=== PATIENT | male | born 1960 | race African-American/Black ===

== ENCOUNTER → 2016-04-11 09:07 | Outpatient (CLI) | payer MEDICARE ==
[~2016-04-11 09:07] MED LIST: CELEXA20 MG PO; CELEXA40 MG PO; K-DUR20 MEQ PO; K-TAB10 MEQ PO; LIPITOR40 MG PO; LISINOPRIL5 MG PO; ZESTORETIC 10/11 TAB PO
== END | disposition home or self-care (01) ==
LOC: D.US 09:00
DX: R10.11 Right upper quadrant pain (principal)

== ENCOUNTER → 2016-05-01 08:21 | Outpatient (CLI) | payer MEDICARE | END | disposition home or self-care (01) | LOC: D.NM 08:21 | DX: R10.11 Right upper quadrant pain (principal); R11.0 Nausea ==

== ENCOUNTER 2019-12-30 23:59 | Observation (INO) | payer MEDICARE ==
[~2019-12-30] VITALS: Ht 172.7 cm; Wt 77.3 kg
--- NOTE | ~2019-12-30 | HEMODYNAMI ---
PATIENT:MICHAEL MARIE MEDICAL RECORD: [id number] : 56 [facility]# [id number] ADMISSION DATE: 12/31/19 Generatedon:12/31/201915:04 Patient name: MICHAEL MARIE Patient #: [id number] N: [id number] : 1960 Date of study: 12/31/2019 Page: Of Hemodynamic Procedure Report Patient Data Patient Demographics Procedure consent was obtained First Name: MICHAEL Gender: Male Last Name: FRANK : 1960 [facility] Initial: KIM Age: 59 year(s) Patient #: [id number] Race: Black SSN: [id number] Additional ID: [id number] Contact details Address: [place] [address] State: [place] City: [facility] Zip code: [address] Past Medical History Allergies Allergen Reaction Date Comments Reported Other allergy 12/31/2019 N Admission Admission Data Admission Date: 12/31/2019 Admission Time: 3:20 Arrival Date: 12/31/2019 Arrival Time: 0:00 Admit Source: Other Insurance Payor: Medicare Room #: D.E10 [facility] #: [id number] Height (in.): 68 BSA: 1.91 (m2) Height (cm.): 172.72 BMI: 25.9 (kg/m2) Weight (lbs.): 170.35 Weight (kg.): 77.27 Lab Results Lab Result Date: 12/31/2019 Lab Result Time: 0:00 Biochemistry Name Units Result Min Max BUN mg/dl 10 --(-*--)-- 7 18 Creatinine mg/dl 0.9 --(-*--)-- 0.6 1.3 eGFR ml/min 90 --(*---)-- 90 120 NONAFRICAN CBC Name Units Result Min Max Hemoglobin g/dl 11.8 *-(----)-- 13.5 17.5 Procedure Procedure Types Cath Procedure Diagnostic Procedure [facility] w/Coronaries Sedation Charges Moderate Sedation 25-39 minutes PCI Procedure Coronary Stent Coronary Stent Initial Hemochron ACT Test Procedure Description Procedure Date Procedure Date: 12/31/2019 Procedure Start Time: 14:28 Procedure End Time: 15:01 Procedure Staff Name Function Júnior Valadez MD Performing Physician Zofia Ornelas RT Monitor Lashonda Neil RT Scrub Romie Lam RN Nurse Procedure Data Cath Procedure Fluoroscopy Diagnostic fluoroscopy Total fluoroscopy Time: 6.7 time: 6.7 min min Diagnostic fluoroscopy Total fluoroscopy dose: dose: 1093 mGy 1093 mGy Contrast Material Contrast Material Type Amount (ml) Isovue 370 126 Entry Location Entry Primary Successful Side Size Upsize Upsize Entry Closure [place]nathy ccessful Closure Location (Fr) 1 (Fr) 2 (Fr) Remarks Device Remarks Radial Right 6 Fr Mechanical artery Short Compression Estimated blood loss: 10 ml Diagnostic catheters Device Type Used For End Catheter Placement DIAGNOSTIC [place] 110cm 5 Procedure Fr catheter ([id number]) Procedure Complications No complications Procedure Medications Medication Administration Route Dosage Oxygen etCO2 Nasal cannula 2 l/min Heparin Flush Bag added to field 2 bags (1000units/500ml NS) 0.9% NaCl I.V. 100 ml/hr Lidocaine 2% added to field 20 Radial Cocktail added to field 1 syringe (Verapamil 2mg/Nitro 400mcg/Heparin 1500units) Radial Cocktail I.A. 1 syringe (Verapamil 2mg/Nitro 400mcg/Heparin 1500units) Fentanyl I.V. 50 mcg Versed I.V. 1 mg Versed I.V. 1 mg Fentanyl I.V. 50 mcg Heparin Bolus I.V. 7500 units Plavix P.O. 600 mg Hemodynamics Rest BSA: 1.91 (m2) HGB: 11.8 (g/dl) O2 Consumption: Estimated: 231.05 (ml/min) O2 Co nsumption indexed: Estimated:120.97 (ml/min/m) Heart Rate: 80 (bpm) Pressure Samples Time Site Value (mmHg) Purpose Heart Use Rate(bpm) 14:39 LV 100/-4,-5 Snapshot 145 14:39 AO 89/55(68) Pullback 101 14:39 LV 107/-13,0 Pullback 101 Gradients Valve Time Site 1 Site 2 Mean SEP/DFP Peak To Heart Use (mmHg) (sec/min) Peak Rate (mmHg) (bpm) Aortic 14:39 LV AO 19 9 18 101 107/-13,0 89/55(68) Calculations Valve P-P Mean Valve Index Valve Source Name Gradient Area Flow (cm2) Aortic 18 19 18 19 Snapshots Pre Cath Intra NCS Post Cath Vital Signs Time Heart Resp SPO2 etCO2 NIBP Rhythm Pain Sedation Rate (ipm) (%) (mmHg) (mmHg) Status Level (bpm) 14:09:33 81 17 97 0 113/75(98) NSR 0 (11) 10(A) , No pain 14:13:39 74 16 97 15.7 116/73(93) NSR 0 (11) 10(A) , No pain 14:17:46 70 17 97 12.7 115/68(89) NSR 0 (11) 10(A) , No pain 14:21:54 65 16 97 16.5 125/69(87) NSR 0 (11) 10(A) , No pain 14:26:06 64 16 97 42.8 119/71(98) NSR 0 (11) 9(A) , No pain 14:30:14 66 16 96 47.3 119/73(95) NSR 0 (11) 9(A) , No pain 14:34:22 67 17 96 47.4 109/73(86) NSR 0 (11) 9(A) , No pain 14:38:28 71 17 96 48.8 115/68(87) NSR 0 (11) 9(A) , No pain 14:42:37 76 16 96 46.6 114/66(84) NSR 0 (11) 9(A) , No pain 14:46:45 71 16 96 47.3 119/69(93) NSR 0 (11) 9(A) , No pain 14:50:55 71 16 96 47.3 112/69(90) NSR 0 (11) 9(A) , No pain 14:55:03 69 17 96 47.3 110/69(91) NSR 0 (11) 9(A) , No pain 14:59:09 68 16 95 46.5 112/70(87) NSR 0 (11) 9(A) , No pain 15:03:16 68 13 96 46.5 113/69(84) NSR 0 (11) 10(A) , No pain Medications Time Medication Route Dose Verified Delivered Reason Not es Effectiveness by by 14:07:49 Oxygen etCO2 2 l/min Júnior Romie Per physician Nasal Rory Lam RN cannula 14:07:56 Heparin Flush added 2 bags Júnior Romie used for Bag to Rory Lam RN procedure (1000units/500ml field NS) 14:08:11 0.9% NaCl I.V. 100 Júnior Romie Per physician ml/hr Rory Lam RN 14:08:19 Lidocaine 2% added 20ml Júnior Romie for local to vial Rory Lam RN anesthetic field 14:08:27 Radial Cocktail added 1 Júnior Romie used for (Verapamil to syringe Rory Lam RN procedure 2mg/Nitro field 400mcg/Heparin 1500units) 14:25:00 Versed I.V. 1 mg Júnior Romie for sedation Rory Lam RN 14:25:50 Fentanyl I.V. 50 mcg Júnior Romie for sedation Rory Lam RN 14:38:31 Radial Cocktail I.A. 1 Júnior Júnior for (Verapamil syringe Rory Valadez MD vasodilation 2mg/Nitro 400mcg/Heparin 1500units) 14:39:21 Versed I.V. 1 mg Júnior Romie for sedation Rory Lam RN 14:39:24 Fentanyl I.V. 50 mcg Júnior Romie for sedation Rory Lam RN 14:47:29 Heparin Bolus I.V. 7500 Júnior Romie for units Rory Lam RN anticoagulation 14:59:51 Plavix P.O. 600 mg Júnior Romie for Rory Lam RN antiplatelet therapy Procedure Log Time Note 13:36:10 Diagnostic Cath Status : Urgent 13:36:29 Procedure Status Urgent Heart Cath (IP). 13:36:35 Time tracking: Regular hours (M-F 7:00 - 5:00) 13:36:40 Plan of Care:Hemodynamics will remain stable., Cardiac rhythm will remain stable., Comfort level will be maintained., Respiratory function will remain adequate., Patient/ family verbilizes understanding of procedure., Procedure tolerated without complication., Recovers from procedure without complications.. 13:37:44 Informed consent obtained and on chart 13:38:39 Lab Result : BUN 10 mg/dl 13:38:39 Lab Result : Hemoglobin 11.8 g/dl 13:38:39 Lab Result : eGFR NONAFRICAN 90 ml/min 13:38:39 Lab Result : Creatinine 0.9 mg/dl 13:42:55 Arrival Date: 12/31/2019 12:00:00 AM 13:42:56 Admit Source: Other 13:43:00 Insurance Payor : Medicare 13:43:16 Patient Height : 68 inches 13:43:21 Patient Weight : 170.35 lbs 13:44:34 Lashonda Neil RT(R) sent for patient. Start room use. 13:45:27 H&P Date Dictated: 12/31/2019 Within 30 days and on chart.. 13:45:28 Pre-procedure instructions explained to patient. 13:45:28 Pre-op teaching completed and patient verbalized understanding. 13:45:30 Family unavailable. 13:45:32 Patient NPO since Midnight. 13:45:44 Patient allergic to Other allergyPCN 13:45:56 Lab results completed and on chart. 13:46:05 Stress Test: no; N/A ? 13:46:06 Alarms reviewed by R. N. 13:46:07 Sharps counted by scrub and verified by R.N. 13:59:41 Patient received from Med II to CCL 2 Alert and oriented. Tansferred to table in Supine position. 14:00:02 Warm blankets applied, and frederic hugger turned on for patient comfort. 14:00:02 Correct patient and procedure confirmed by team. 14:00:02 ECG and BP/O2 sat monitors applied to patient. 14:00:11 Is the patient allergic to Iodine/contrast media? No. 14:00:12 Was the patient premedicated? N/A 14:04:16 Is patient on blood thinner?No 14:04:18 Patient diabetic? No. 14:04:20 If diabetic: On Metformin? N/A 14:04:23 ----Pre-sedation anethsthesia assessment.---- 14:04:25 Previous problem with sedation/anesthesia? No ? 14:04:26 Snore? Yes 14:04:27 Sleep apnea? Yes 14:04:28 Deviated septum? No 14:04:29 Opens mouth fully? Yes 14:04:34 Sticks out tongue? Yes 14:04:37 Airway obstruction? No ? 14:04:39 Dentures? No ? 14:04:44 Pre procedure: right dorsailis pedis pulse 2+ Normal; easily identifiable; not easily obliterated 14:04:46 Modified Alpesh's test Ulnar < 7 seconds 14:04:58 Patient pain scale 0/10 ?. 14:05:04 IV patent on arrival in left antecubital with 0.9% NaCl at [facility]. 14:05:08 Right Radial & Right Groin area was prepped with chlora-prep and draped in sterile fashion 14:05:14 Use device set Radial Dx or PCI 14:05:15 ACIST Syringe (82295) opened to sterile field. 14:05:16 Medline Cath Pack ([id number]) opened to sterile field. 14:05:16 Bag Decanter (2002S) opened to sterile field. 14:05:17 ACIST Hand Control (75147) opened to sterile field. 14:05:17 ACIST Manifold (10205) opened to sterile field. 14:05:20 MBrace Wrist Support ([id number]) opened to sterile field. 14:05:20 NEEDLE Cook 21G 4cm Radial (Y06674) opened to sterile field. 14:05:22 EMERALD Guide Wire (921-935) opened to sterile field. 14:05:23 SHEATH 6FR RAIN (7492419) opened to sterile field. 14:07:49 Oxygen 2 l/min etCO2 Nasal cannula was administered by Romie Lam RN; Per physician; Verbal order read back and verified. 14:07:56 Heparin Flush Bag (1000units/500ml NS) 2 bags added to field was administered by Romie Lam RN; used for procedure; Verbal order read back and verified. 14:08:11 0.9% NaCl 100 ml/hr I.V. was administered by Romie Lam RN; Per physician; Verbal order read back and verified. 14:08:19 Lidocaine 2% 20ml vial added to field was administered by Romie Lam RN; for local anesthetic; Verbal order read back and verified. 14:08:27 Radial Cocktail (Verapamil 2mg/Nitro 400mcg/Heparin 1500units) 1 syringe added to field was administered by Romie Lam RN; used for procedure; Verbal order read back and verified. 14:08:35 Vital chart was started 14:08:37 Full Disclosure recording started 14:08:42 Rhythm: sinus rhythm 14::43 Baseline sample Acquired. 14::41 --------ALL STOP TIME OUT------ 14::41 Final Timeout: patient, procedure, and site verified with staff and physician. All members of the team are in agreement. 14:24:43 Right Radial & Right Groin site verified by team. 14:24:46 Fire Safety Assessment: A--An alcohol-based skin anteseptic being used preoperatively., C--Open oxygen or nitrous oxide is being used., D--An ESU, laser, or fiber-optic light is being used. 14:24:50 Physical assessment completed. ASA score P 2 - A patient with mild systemic disease as per Júnior Valadez MD. 14:24:53 1) 90+ Normal kidney functon but urine findings or structural abnormalities or genetic trait point to kidney disease. 14:24:55 Maximum allowable contrast dose (3.7 X eGFR X 0.75)250 ml. 14:24:59 Sedation plan: IV Moderate Sedation Medication:Versed, Fentanyl 14:25:00 Versed 1 mg I.V. was administered by Romie Lam RN; for sedation; Verbal order read back and verified. 14:25:50 Fentanyl 50 mcg I.V. was administered by Romie Lam RN; for sedation; Verbal order read back and verified. 14:28:29 Procedure started. 14:28:37 Local anesthetic to right radial artery with Lidocaine 2% by Júnior Valadez MD.INITIAL ACCESS ONLY 14:37:42 A 6 Fr Short sheath was inserted into the Right Radial artery 14:38:11 A DIAGNOSTIC [place] 110cm 5 Fr catheter ([id number]) was advanced over the wire and used for Procedure. 14:38:31 Radial Cocktail (Verapamil 2mg/Nitro 400mcg/Heparin 1500units) 1 syringe I.A. was administered by Júnior Valadez MD; for vasodilation; Verbal order read back and verified. 14:39:00 LV gram done using MISHRA 14:39:18 Injector settings: Ml/sec: 5, Volume: 15, 14:39:21 Versed 1 mg I.V. was administered by Romie Lam RN; for sedation; Verbal order read back and verified. 14:39:24 Fentanyl 50 mcg I.V. was administered by Romie Lam RN; for sedation; Verbal order read back and verified. 14:39:30 LV hemodynamics recorded. 14:39:38 EF : 60 % 14:39:55 LCA angiography performed. 14:40:29 Injector settings: Ml/sec: 3, Volume: 6, 14:42:00 RCA angiography performed. 14:42:03 Injector settings: Ml/sec: 3, Volume: 6, 14:42:31 ACCDominant side:Right 14:43:57 Catheter exchanged over wire. 14:43:57 Proceeding to intervention. 14:44:02 Use device set Doctor kinetic PCI 14:44:04 INFLATOR Merit BasixCompak (IV3565) opened to sterile field. 14:44:05 TUBING High Pressure Extension Tubing ([employer]) ([id number]) opened to sterile field. 14:46:01 BMW 300cm [place] 2 J wire ([id number]) opened to sterile field. 14:46:06 GUIDE 6FR XBLAD 3.5 catheter ([id number]) opened to sterile field. 14:46:43 Pre PCI Site: [place] mLAD has 80% stenosis. 14:46:48 Pre PCI Site: [place] dLAD has 80% stenosis. 14:46:54 6 Fr XBLAD 3.5 guide catheter was inserted over the wire 14:47:29 Heparin Bolus 7500 units I.V. was administered by Romie Lam RN; for anticoagulation; Verbal order read back and verified. 14:47:49 BMW 300 wire advanced. 14:48:18 Wire advanced across lesion. 14:51:26 Place stent Inflation Number: 1 A MCKINLEY OTW 2.5 x 12 stent ([id number]) was prepped and advanced across the Dist LAD 80. The stent was deployed at 12 JULIANNA for 0:00 (min:sec) . 14:52:49 Stent catheter was removed intact over wire. 14:53:26 Wire redirected to MID-LAD. 14:56:32 Place stent Inflation Number: 1 A MCKINLEY OTW 3.0 x 22 stent ([id number]) was prepped and advanced across the Mid LAD 80. The stent was deployed at 13 JULIANNA for 0:00 (min:sec) . 14:57:26 Stent catheter was removed intact over wire. 14:57:27 Wire removed. 14:57:28 Guide catheter removed. 14:57:36 ZEPHYR REGULAR TR BAND (772756) opened to sterile field. 14:58:27 Sheath removed intact; hemostasis achieved with Mechanical Compression to the Right Radial artery. 14:58:31 Procedure ended.(Physican Out) 14:58:58 Fluoroscopy time 06.70 minutes. 14:59:02 Fluoroscopy dose: 1093 mGy 14:59:02 Flurop Dose total: 1093 14:59:07 Dose Area Product 74065 mGy/cm. 14:59:12 Contrast amount:Isovue 370 126ml. 14:59:15 Maximum allowable dose exceeded? No. 14:59:15 Sharps counted by scrub and verified by R.N. 14:59:18 Thelma band inflated with 10cc of air. 14:59:19 Post Procedure Pulses reassessed and unchanged 14:59:22 Post procedure: right dorsailis pedis pulse 2+ Normal; easily identifiable; not easily obliterated. 14:59:25 Post-procedure physical assessment completed. ASA score P 2 - A patient with mild systemic disease as per Júnior Valadez MD. 14:59:28 Post procedure rhythm: unchanged. 14:59:30 Estimated blood loss: 10 ml 14:59:32 Post procedure instruction explained to patient.Patient verbalizes understanding. 14:59:32 Patient needs reinforcement of post procedure teaching. 14:59:51 Plavix 600 mg P.O. was administered by Romie Lam RN; for antiplatelet therapy; Verbal order read back and verified. 15:00:10 Procedure type changed to Cath procedure, Diagnostic procedure, LHC, [facility] w/Coronaries, Sedation Charges, Moderate Sedation 25-39 minutes, PCI procedure, Coronary Stent, Coronary Stent Initial, Hemochron ACT Test 15:01:03 Procedure and supply charges have been captured, reviewed, submitted and are correct. 15:01:07 Procedure Complication : No complications 15:01:13 [facility] Findings: MVD- PCI performed (see procedure note) 15:01:15 Operative report dictated upon procedure completion. 15:01:15 See physician's report for complete and final results. 15:01:17 Report given to Med II. 15:01:[address] [facility] II with Bed. 15:01:56 Procedure ended. 15:01:56 Full Disclosure recording stopped 15:02:11 ACC-PCI Only Patient was given prescriptions, or instructed by Júnior Valadez MD to start/continue the following medications upon discharge: Plavix 15:03:32 ACT drawn and resulted at OUT OF RANGE seconds. (normal therapeutic range 180-240 seconds). 15:03:40 Vital chart was stopped 15:03:42 End room use (Document Last) 15:03:52 End room use (Document Last) 15:04:28 End room use (Document Last) Intervention Summary Intervention Notes Time ActionType Lesion and Equipment Action# Pressure Duration Attributes Used 14:51:26 Place stent Dist LAD MCKINLEY OTW 2.5 1 12 00:00 x 12 stent ([id number]) 14:56:32 Place stent Mid LAD MCKINLEY OTW 3.0 1 13 00:00 x 22 stent ([id number]) Device Usage Item Name Manufacture Quantity Catalog Hospital Part Current [facility] Lot# / Number Charge Number Stock Stock Serial# Code ACIST Syringe Acist 1 65799 838300 646392 980015 20 (54547) Medical Systems Inc Medline Cath Medline 1 [id number] 210863 78446 399023 5 Pack (PORT57290) Bag Decanter Microtek 1 2001S 716876 77252 476305 5 (2001S) Medical Inc. ACIST Hand Acist 1 45675 460345 295286 132493 5 Control Medical (48954) Systems Inc ACIST Acist 1 12346 512998 488961 851432 5 Manifold Medical (35838) Systems Inc MBrace Wrist Advanced 1 140-0250-00 386650 18138 831178 5 Support Vascular (197850658) Dynamics NEEDLE Cook Cook Medical 1 Y46482 003189 909549 378031 5 21G 4cm Radial (W88276) EMERALD Guide Cardinal 1 997-281 086517 314699 407539 5 Replica Labs Health (624-395) SHEATH 6FR Cardinal 1 2121619 325497 4337826 612310 5 [facility] (3531519) DIAGNOSTIC Terumo 1 40-9965 739020 031757 427070 5 [place] 110cm 5 Fr catheter (624911) INFLATOR Merit 1 ST1755 180458 796178 959384 15 Merit Medical BasixCompak (PW8770) TUBING High Merit 1 [id number] 353997 71492 086838 10 Pressure Medical Extension Tubing (Valadez) ([id number]) BMW 300cm [place] 1 [id number] 292851 734454 157895 5 [place] 2 J Vascular wire (8801760D) GUIDE 6FR Cardinal 1 75431936 265251 953956 898439 10 XBLAD 3.5 Health catheter (72233919) MCKINLEY OTW 2.5 Medtronic 1 [id number] 984955 04399 666246 5 [id number] x 12 stent ([id number]) MCKINLEY OTW 3.0 Medtronic 1 [id number] 851281 7012693 114380 5 [id number] x 22 stent ([id number]) ZEPHYR Cardinal 1 684392 179497 7051308 835549 5 REGULAR TR Health BAND (431792) Signature Audit [place] Stage Time Signature Unsigned Intra-Procedure 12/31/2019 Zofia Ornelas 3:03:52 PM RT(R) Intra-Procedure 12/31/2019 Romie Lam 3:04:28 PM RN Intra-Procedure 12/31/2019 Júnior Valadez MD 3:04:48 PM Signatures Performing Physician : Signature : Júnior Valadez MD Date : Time : Monitor : Zofia Ornelas Signature : RT Date : Time : Nurse : Romie Lam RN Signature : Date : Time : [facility] [address] [place] [address]
[2019-12-31] MEDS ORDERED: LISINOPRIL2.5 MG (00:13)
[2019-12-31 00:19] VITALS: BP 145/87
[2019-12-31 00:57] LABS: BASOPHILS 0.1 % (0-2); EOSINOPHILS 1.9 % (0-7); HEMATOCRIT 38.7 % (42.0-54.0); HEMOGLOBIN 12.2 g/dL (13.5-17.5); IMMATURE GRANULOCYTES 0.1 % (0-5); LYMPHOCYTES 26.1 % (15-50); MCH 27.1 pg (26.0-34.0); MCHC 31.5 g/dL (31.0-37.0); MCV 85.8 fL (80.0-100.0); MEAN PLATELET VOLUME 9.8 fL (7.4-10.4); MONOCYTES 7.3 % (2-11); NEUTROPHILS 64.5 % (40-80); PLATELET COUNT 243 10x3/uL (130-400); RBC 4.51 10x6/uL (4.20-6.10); RDW 13.6 % (11.5-14.5); WBC 6.7 10x3/uL (4.8-10.8)
[2019-12-31 01:06] LABS: APTT 26.5 SECONDS (22.8-39.4); CALC OSMOLALITY 275 mosm/kg (275-300); CALCIUM 9.9 mg/dL (8.5-10.1); CARBON DIOXIDE 28.7 mmol/L (21.0-32.0); CHLORIDE - SERUM 102 mmol/L (98-107); CREATININE - SERUM 1.1 mg/dL (0.6-1.3); GLUCOSE 97 mg/dL (74-106); INR 1.08 (0.85-1.17); POTASSIUM - SERUM 3.1 mmol/L (3.5-5.1); PROTIME 13.9 SECONDS (11.6-15.0); SODIUM 138 mmol/L (136-145); UREA NITROGEN 13 mg/dL (7-18); eGFR NON AFRICAN AMERICAN 72 mL/min (90-120)
[2019-12-31 01:25] LABS: ALBUMIN 3.8 g/dL (3.4-5.0); ALKALINE PHOSPHATASE 72 U/L (30-120); ALT (SGPT) 34 U/L (10-68); CKMB 5.6 U/L (0.0-3.6); CREATINE KINASE 532 UL (21-232); MAGNESIUM - SERUM 2.1 mg/dL (1.8-2.4); PROTEIN - SERUM 7.8 g/dL (6.4-8.2); TROPONIN-I 0.028 ng/mL (0.000-0.060)
[2019-12-31 01:50] LABS: UDS - AMPHET NEGATIVE QUAL (NEGATIVE); UDS - BARB NEGATIVE QUAL (NEGATIVE); UDS - BENZO NEGATIVE QUAL (NEGATIVE); UDS - COCAINE NEGATIVE QUAL (NEGATIVE); UDS - OPIATE NEGATIVE QUAL (NEGATIVE); UDS - PCP NEGATIVE QUAL (NEGATIVE); UDS - THC POSITIVE QUAL (NEGATIVE)
[2019-12-31 02:00] VITALS: BP 126/76
[2019-12-31 03:24] LABS: BILIRUBIN NEGATIVE (NEGATIVE); KETONE NEGATIVE (NEGATIVE); NITRITE NEGATIVE (NEGATIVE); UROBILINOGEN NORMAL mg/dL (< 2)
[2019-12-31 04:00] VITALS: BP 146/97
[2019-12-31 06:00] VITALS: BP 114/72
[2019-12-31 08:42] VITALS: Ht 172.7 cm; Wt 77.3 kg
[2019-12-31 09:03] LABS: BASOPHILS 0.4 % (0-2); HEMATOCRIT 37.2 % (42.0-54.0); HEMOGLOBIN 11.8 g/dL (13.5-17.5); IMMATURE GRANULOCYTES 0.2 % (0-5); LYMPHOCYTES 31.6 % (15-50); MCH 26.9 pg (26.0-34.0); MCHC 31.7 g/dL (31.0-37.0); MCV 84.9 fL (80.0-100.0); MEAN PLATELET VOLUME 10.4 fL (7.4-10.4); MONOCYTES 6.9 % (2-11); NEUTROPHILS 59.9 % (40-80); PLATELET COUNT 265 10x3/uL (130-400); RBC 4.38 10x6/uL (4.20-6.10); RDW 13.6 % (11.5-14.5); WBC 5.2 10x3/uL (4.8-10.8)
[2019-12-31 10:16] LABS: % SATURATION 30 % (15-55); IRON 76 ug/dl (35-150); TOTAL IRON BIND CAPACITY 250 ug/dl (260-445); UNSAT IRON BIND CAPACITY 174 ug/dl (150-375)
[2019-12-31 10:21] LABS: ALT (SGPT) 36 U/L (10-68); CALC OSMOLALITY 274 mosm/kg (275-300); CALCIUM 9.1 mg/dL (8.5-10.1); CARBON DIOXIDE 29.9 mmol/L (21.0-32.0); CHLORIDE - SERUM 103 mmol/L (98-107); CHOL - HDL RATIO 1.9 ratio (2.3-4.9); CHOLESTEROL, TOTAL 119 mg/dL (0-200); CKMB 3.9 U/L (0.0-3.6); CREATINE KINASE 442 UL (21-232); CREATININE - SERUM 0.9 mg/dL (0.6-1.3); GLUCOSE 102 mg/dL (74-106); HDL CHOLESTEROL 63 mg/dL (32-96); LDL CHOLESTEROL 51 mg/dL (0-100); LDL-HDL RATIO 0.8 ratio (1.5-3.5); SODIUM 138 mmol/L (136-145); TRIGLYCERIDE 26 mg/dL (30-200); TROPONIN-I 0.029 ng/mL (0.000-0.060); UREA NITROGEN 10 mg/dL (7-18); eGFR NON AFRICAN AMERICAN > 90 mL/min (90-120)
[2019-12-31 10:24] LABS: POTASSIUM - SERUM 3.7 mmol/L (3.5-5.1)
[2019-12-31 11:31] VITALS: BP 129/74
--- NOTE | 2019-12-31 14:29 | NUR ---
NS INFUSION STOPPED AT 1405.
--- NOTE | 2019-12-31 15:15 | NUR ---
PT REC'D TO ROOM 2 VIA STRETCHER FROM AGRICULTURAL ECONOMICS PROFESSOR. MONITORS ESTAB. PT AROUSES EASILY. SEE MULTIMEDIA DEVELOPER. ALARMS ON AND C/L IN REACH.
--- NOTE | 2019-12-31 15:30 | NUR ---
R WRIST SITE C/D/I, NO S/S BLEEDING OR HEMATOMA. R ARM/HAND WARM WITH PALP PULSES. AT BS, DR. ALMEIDA HAS SPOKEN WITH HER.
[2019-12-31] MEDS ORDERED: BAYER CHEWABLE81 MG PO (15:35)
[2019-12-31] MEDS ORDERED: PLAVIX75 MG PO (15:35)
--- NOTE | 2019-12-31 15:36 | NUR ---
NEW ORDER REC'D FOR PT D/C HOME FROM DR. HEARN. DR. ALMEIDA OK'D D/C. NEW PLAVIX PRESCRIPTION CALLED IN TO [facility] [place], [facility], PER PT REQUEST.
--- NOTE | 2019-12-31 16:00 | NUR ---
R WRIST SITE C/D/I, NO S/S BLEEDING OR HEMATOMA. PULSES PALP. VSS. PT DENIES PAIN OR NEEDS. ALARMS ON AND C/L IN REACH.
--- NOTE | 2019-12-31 16:15 | NUR ---
R Z BAND SITE C/D/I, NO S/S BLEEDING OR HEMATOMA. PULSES PALP. R ARM/HAND WARM, BRISK CAP REFILL. VSS. PT REFUSED SANDWICH OR DRINK AT THIS TIME. ALARMS ON AND C/L IN REACH.
--- NOTE | 2019-12-31 16:45 | NUR ---
R WRIST SITE C/D/I, NO S/S BLEEDING OR SWELLING. PULSES PALP. VSS.
--- NOTE | 2019-12-31 17:05 | NUR ---
R WRIST SITE C/D/I, PULSES PALP. PT SITTING UP IN BED, SANDWICH TRAY AND COLA PROVIDED. AT BS ASSISTING PT. ALARMS ON AND C/L IN REACH.
--- NOTE | 2019-12-31 17:45 | NUR ---
PT FINISHED EATING, NO N/V. R WRIST SITE C/D/I, 2CC AIR REMOVED FROM Z BAND. PT INSTRUCTED ON S/S TO REPORT AND POST OP POC. C/L IN REACH.
--- NOTE | 2019-12-31 18:05 | NUR ---
TOTAL 5CC AIR REMOVED FROM Z BAND. NO S/S BLEEDING. PT WATCHING TV, VSS. C/L IN REACH.
--- NOTE | 2019-12-31 18:15 | NUR ---
TOTAL 7CC AIR REMOVED FROM Z BAND, NO S/S BLEEDING OR HEMATOMA. PULSES PALP. VSS.
--- NOTE | 2019-12-31 18:25 | NUR ---
ALL AIR REMOVED FROM Z BAND. NO S/S BLEEDING OR HEMATOMA. PULSES PALP.
--- NOTE | 2019-12-31 18:45 | NUR ---
ALL DISCHARGE INSTRUCTIONS REVIEWED WITH PT AND HIS , INCLUDING NEW PRESCRIPTION - PLAVIX, RESTRICTIONS, AND F/U APPT. BOTH VERBALIZE UNDERSTANDING.
--- NOTE | 2019-12-31 18:50 | NUR ---
R WRIST SITE C/D/I. PIV D/C'D INTACT, DSG APPLIED. PT ALLOWED UP TO GET DRESSED AND GO TO BR INDEPENDENTLY.
--- NOTE | 2019-12-31 18:52 | NUR ---
R Z BAND OFF, DSG AND ARM BOARD APPLIED. PT D/C'D TO PRIVATE VEHICLE WITH ALL PAPERWORK AND BELONGINGS.
== END 2019-12-31 18:52 | disposition home or self-care (01) ==
LOC: D.ER 23:59 → D.EDHOLD 12-31 03:20 → OBSVTIME 12-31 03:20 → D.CLR 12-31 15:20
PROVIDERS: Family Medicine; Internal Medicine Cardiovascular Disease; ADMIT Emergency Medicine; ATTEND Emergency Medicine
DX: I20.0 Unstable angina (principal); I10 Essential (primary) hypertension; E78.5 Hyperlipidemia, unspecified; R07.89 Other chest pain; R55 Syncope and collapse
CPT/HCPCS: 93458; C9600

== ENCOUNTER → 2020-06-29 08:54 | Outpatient (CLI) | payer OTHER ==
[2019-12-31 08:42] VITALS: BMI 25.9
[~2020-06-29 08:54] MED LIST changes: +BAYER CHEWABLE81 MG PO; +LISINOPRIL2.5 MG; +PLAVIX75 MG PO
== END | disposition home or self-care (01) ==
LOC: D.US 06-18 08:00
PROVIDERS: ATTEND Clinical Nurse Specialist Family Health
DX: L97.929 Non-pressure chronic ulcer of unspecified part of left lower leg with unspecified severity (principal)

== ENCOUNTER → 2020-07-14 09:12 | Outpatient (CLI) | payer OTHER ==
[2019-12-31 08:42] VITALS: BMI 25.9
== END | disposition home or self-care (01) ==
LOC: D.CT 09:00
PROVIDERS: ATTEND Clinical Nurse Specialist Family Health
DX: L97.929 Non-pressure chronic ulcer of unspecified part of left lower leg with unspecified severity (principal)

== ENCOUNTER → 2020-08-11 20:35 | Outpatient (CLI) | payer OTHER ==
[2019-12-31 08:42] VITALS: BMI 25.9
[2020-08-11 21:58] LABS: CHOL - HDL RATIO 2.1 ratio (2.3-4.9); LDL-HDL RATIO 0.9 ratio (1.5-3.5)
== END | disposition home or self-care (01) ==
LOC: D.LABREF 20:35
PROVIDERS: ATTEND Nurse Practitioner Adult Health
DX: E78.5 Hyperlipidemia, unspecified (principal)